=== PATIENT | male | born 1990 | race African-American/Black ===

== ENCOUNTER 2017-02-26 20:01 | Emergency (ER) | payer OTHER ==
[~2017-02-26] VITALS: Ht 172.7 cm; Wt 80.9 kg
[2017-02-26] MEDS ORDERED: ALBU8.5H8 IH (20:13)
[2017-02-26] MEDS ORDERED: IBUPROFEN 800 MG TABLET PO ONE (20:45)
[2017-02-26 22:56] VITALS: BP 127/74
== END 2017-02-26 23:16 | disposition home or self-care (01) ==
LOC: EMS 20:03
DX: L03.114 Cellulitis of left upper limb (principal); J45.909 Unspecified asthma, uncomplicated
CPT/HCPCS: 99284